=== PATIENT | female | born 2000 | race Caucasian/White ===

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

== ENCOUNTER 2021-08-21 01:55 | Emergency (ER) | payer BC ==
[~2021-08-21] VITALS: Ht 170.1 cm; Wt 98.0 kg
[~2021-08-21 01:55] MED LIST changes: +SERT-413; -SERT50TA9
--- NOTE | 2021-08-21 02:11 | ED Cough/URI ---
General Stated Complaint: FEVER,COUGH,SOB Source: patient History of Present Illness Date Seen by Provider: Aug 21, 2021 Time Seen by Provider: 02:02 Initial Comments PT ARRIVES VIA POV FROM HOME STATES SHE HAS BEEN SICK SINCE Friday08/16/21 HAD FEVER AND MUCH FATIGUE ON FRIDAY HAS HAD PERSISTENT FEVER UP TO 102.8 ON FRIDAY, SHE BEGAN TO HAVE SWOLLEN GLANDS IN HER NECK ON FRIDAY, SHE BEGAN TO HAVE A SORE THROAT AND WENT TO [facility] ON FRIDAY AND STREP TEST WAS NEGATIVE AND WAS PLACED ON AMOXIL PT ALSO TESTED NEGATIVE FOR COVID-19 AT WORK ON FRIDAY--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 NO DIARRHEA, NO ABDOMINAL PAIN C/O HEADACHE, BUT STATES SHE FREQUENTLY GETS HEADACHES NO LOSS OF TASTE OR SMELL TOOK EXTRA STRENGTH TYLENOL AROUND 0125, AND MOTRIN YESTERDAY AFTER NOON AROUND 1500 STATES SHE IS TRYING TO DRINK WATER, BUT HURTS TO SWALLOW STATES HER URINE HAS BEEN DARK TODAY PT IS FULLY VACCINATED AGAINST COVID-19, INCLUDING BOOSTER VACCINE ON 08/01/21 NO CHRONIC ILLNESS LMP--NOW. NORMAL. NO CONTROL PCP: DR. SALCEDO Allergies and Home Medications Allergies Coded Allergies: No Known Drug Allergies (Unverified , 06/24/17) Patient Home Medication List Home Medication List Reviewed: Yes Methylprednisolone (Medrol) 4 Mg Tab.ds.pk, 4 MG PO UD Prescribed by: TOSIN HURLEY on 08/21/21 0332 Sertraline HCl (Sertraline HCl) 50 Mg Tablet, (Reported) Entered as Reported by: CAROL BROWN on 06/24/17 1904 Review of Systems Review of Systems Constitutional: no symptoms reported, fever, malaise EENTM: see HPI, nose congestion, throat pain Respiratory: cough; No short of breath Cardiovascular: no symptoms reported Gastrointestinal: see HPI; No abdominal pain, No diarrhea; nausea; No vomiting Genitourinary: see HPI Musculoskeletal: no symptoms reported Skin: no symptoms reported Psychiatric/Neurological: See HPI, Headache Hematologic/Lymphatic: No Symptoms Reported Immunological/Allergic: no symptoms reported Past Lnqdnbh-Pnqmel-Zhkrru Hx Patient Social History Tobacco Use?: No Substance use?: No Alcohol Use?: No Immunizations Up To Date PED Vaccines UTD: Yes Seasonal Allergies Seasonal Allergies: No Past Medical History Surgeries: Yes (WISDOM TEETH) Respiratory: No Cardiac: No Neurological: Yes ( FEBRILE SEIZURES CHILD) Headaches /Migraines : No Reproductive Disorders: No Genitourinary: No Gastrointestinal: No Musculoskeletal: No Endocrine: No HEENT: No Cancer: No Psychosocial: No Integumentary: No Blood Disorders: No Physical Exam Vital Signs - First Documented 08/21/21 02:00 Temp 36.4 Pulse 147 Resp 20 B/P (MAP) 149/109 (122) Pulse Ox 98 O2 Delivery Room Air Capillary Refill : Height: 5'6.00" Weight: 206lbs. oz. 93.156720xc; 28.12 BMI Method:Stated General Appearance: WD/WN, no apparent distress HEENT: PERRL/EOMI, TMs normal; No scleral icterus (R), No scleral icterus (L); pharyngeal erythema, tonsillar exudate, other (TONSILS +3/4--ALMOST TOUCHING, VERY ERYTHEMATOUS WITH EXTENSIVE EXUDATE. 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, no motor/sensory deficits, alert, normal mood/affect, oriented x 3 Skin: normal color, warm/dry; No jaundice, No rash Progress/Results/Core Measures Suspected Sepsis SIRS Temperature: Pulse: Respiratory Rate: Laboratory Tests 08/21/21 02:30: White Blood Count 5.0 Blood Pressure / Mean: Laboratory Tests 08/21/21 02:30: Creatinine 0.76, Platelet Count 236, Total Bilirubin 0.6 Results/Orders Lab Results Laboratory Tests Test 08/21/21 02:00 08/21/21 02:30 Range/Units Influenza Type A (RT-PCR) Not Detected Not Detecte Influenza Type B (RT-PCR) Not Detected Not Detecte SARS-CoV-2 RNA (RT-PCR) Not Detected Not Detecte Group A Streptococcus Screen NEGATIVE NEGATIVE White Blood Count 5.0 4.3-11.0 10^3/uL Red Blood Count 4.91 3.80-5.11 10^6/uL Hemoglobin 11.8 11.5-16.0 g/dL Hematocrit 37 35-52 % Mean Corpuscular Volume 76 L 80-99 fL Mean Corpuscular Hemoglobin 24 L 25-34 pg Mean Corpuscular Hemoglobin Concent 32 32-36 g/dL Red Cell Distribution Width 17.4 H 10.0-14.5 % Platelet Count 236 130-400 10^3/uL Mean Platelet Volume 10.0 9.0-12.2 fL Immature Granulocyte % (Auto) 0 % Neutrophils (%) (Auto) 37 L 42-75 % Lymphocytes (%) (Auto) 55 H 12-44 % Monocytes (%) (Auto) 5 0-12 % Eosinophils (%) (Auto) 1 0-10 % Basophils (%) (Auto) 1 0-10 % Neutrophils # (Auto) 1.9 1.8-7.8 10^3/uL Lymphocytes # (Auto) 2.8 1.0-4.0 10^3/uL Monocytes # (Auto) 0.3 0.0-1.0 10^3/uL Eosinophils # (Auto) 0.0 0.0-0.3 10^3/uL Basophils # (Auto) 0.1 0.0-0.1 10^3/uL Immature Granulocyte # (Auto) 0.0 0.0-0.1 10^3/uL Sodium Level 139 135-145 MMOL/L Potassium Level 4.0 3.6-5.0 MMOL/L Chloride Level 105 98-107 MMOL/L Carbon Dioxide Level 20 L 21-32 MMOL/L Anion Gap 14 5-14 MMOL/L Blood Urea Nitrogen 8 7-18 MG/DL Creatinine 0.76 0.60-1.30 MG/DL Estimat Glomerular Filtration Rate 97 BUN/Creatinine Ratio 11 Glucose Level 103 70-105 MG/DL Calcium Level 8.7 8.5-10.1 MG/DL Corrected Calcium 8.9 8.5-10.1 MG/DL Total Bilirubin 0.6 0.1-1.0 MG/DL Aspartate Amino Transf (AST/SGOT) 269 H 5-34 U/L Alanine Aminotransferase (ALT/SGPT) 297 H 0-55 U/L Alkaline Phosphatase 196 H 40-136 U/L Total Protein 7.3 6.4-8.2 GM/DL Albumin 3.7 3.2-4.5 GM/DL Serum Test, Qualitative NEGATIVE NEGATIVE Monoscreen NEGATIVE NEGATIVE My Orders Orders - TOSIN HURLEY DO Influenza A And B By Pcr (08/21/21 02:00) Covid 19 Inhouse Test (08/21/21 02:00) Rapid Strep A Screen (08/21/21 02:04) Ed Iv/Invasive Line Start (08/21/21 02:22) Monitor-Rhythm Ecg Trace Only (08/21/21 02:22) Cbc With Automated Diff (08/21/21 02:22) Comprehensive Metabolic Panel (08/21/21 02:22) Hcg,Qualitative Serum (08/21/21 02:22) Monotest (08/21/21 02:22) Ed Iv/Invasive Line Start (08/21/21 02:22) Ns Iv 1000 Ml (Sodium Chloride 0.9%) (08/21/21 02:30) Manual Differential (08/21/21 02:30) Jeanette Thomas Virus Profile (08/21/21 03:17) Hepatitis Panel Acute (08/21/21 03:18) Methylprednisolone Sod Succ (Solu-Medrol (08/21/21 03:30) Ceftriaxone 1 Gm Pre-Mix (Rocephin 1 Gm (08/21/21 03:19) Ceftriaxone (Rocephin) (08/21/21 03:25) Medications Given in ED Current Medications Medications Dose Ordered Sig/Mariann Route Start Time Stop Time Status Last Admin Dose Admin Methylprednisolone Sodium Succinate 125 mg ONCE ONCE IVP 08/21/21 03:30 08/21/21 03:31 UNV 08/21/21 03:30 125 MG Vital Signs/I&O 08/21/21 02:00 Temp 36.4 Pulse 147 Resp 20 B/P (MAP) 149/109 (122) Pulse Ox 98 O2 Delivery Room Air Capillary Refill : Progress Note : Progress Note PLACED IN ISOLATION ROOM PPE WORN COVID-19 TESTING PERFORMED. GIVEN IV FLUIDS AND LAB DONE. HEART RATE DOWN TO 100 BP STABLE O2 SAT 100% ON ROOM AIR NO DETERIORATION IN PT'S CONDITION DURING ER STAY DISCUSSED WITH PT THE IMPORTANCE OF FOLLOW UP WITH HER PCP ( OR NETTE IF HIS OFFICE IS CLOSED FOR HOLIDAY) IN 2 DAYS FOR RECHECK OF CONDITION AND REPEAT LAB, AND REPEAT MONO TESTING Departure Impression Primary Impression: Exudative pharyngitis Additional Impressions: Elevated liver enzymes SUSPECTED VIRAL ILLNESS Mild dehydration Disposition: HOME, SELF-CARE Condition: Improved Departure-Patient Inst. Decision time for Depature: 03:20 Referrals: BENNIE SALCEDO MD (PCP/Family) Primary Care Physician Patient Instructions: Dehydration, Adult (DC), Liver Function Test, Sore Throat, Adult ED, Viral Pharyngitis (DC) Add. Discharge Instructions: INCREASE YOUR FLUID INTAKE--DRINK EQUAL AMOUNTS OF WATER AND GATORADE--DRINK ENOUGH SO YOU ARE URINATING EVERY 2-3 HOURS WHILE AWAKE AVOID TYLENOL AT THIS TIME, WELL ALCOHOL, THEY CAN AFFECT YOUR LIVER. YOU MAY TAKE IBUPROFEN NEEDED FOR PAIN OR FEVER CONTINUE AMOXIL UNTIL YOU ARE RECHECKED BY YOUR DR FOLLOW UP WITH DR. SALCEDO ( OR WITH NETTE IF HIS OFFICE IS CLOSED FOR HOLIDAY) IN 2 DAYS FOR FURTHER EVALUATION. YOU WILL NEED TO HAVE YOUR LAB RECHECKED--ESPECIALLY FOR LIVER ENZYMES, AND FOR REPEAT MONO TESTING. RETURN TO ER IF YOUR SYMPTOMS WORSEN Scripts Methylprednisolone (Medrol) 4 Mg Tab.ds.pk 4 MG PO UD for 6 Days, #21 PKG PER DOSE PACK INSTRUCTIONS Prov: TOSIN HURLEY DO 08/21/21 Work/School Note: Work Release Form Date Seen in the Emergency Department: Aug 21, 2021 Restrictions: Need Release from Doctor TOSIN HURLEY DO Aug 21, 2021 02:11
[2021-08-21] MEDS ORDERED: NS IV 1000 ML 1,000 ML IV SCH (02:30)
[2021-08-21 02:50] LABS: ALBUMIN 3.7 GM/DL (3.2-4.5)
[2021-08-21 02:51] LABS: CALCIUM 8.7 MG/DL (8.5-10.1)
[2021-08-21 02:53] LABS: TOTAL PROTEIN 7.3 GM/DL (6.4-8.2)
[2021-08-21 02:54] LABS: BILIRUBIN,TOTAL 0.6 MG/DL (0.1-1.0)
[2021-08-21 02:56] LABS: CREATININE SERUM 0.76 MG/DL (0.60-1.30)
[2021-08-21 03:02] LABS: BASOPHILS # (AUTO) 0.1 10^3/uL (0.0-0.1); BASOPHILS % (AUTO) 1 % (0-10); EOSINOPHILS % (AUTO) 1 % (0-10); HEMATOCRIT 37 % (35-52); HEMOGLOBIN 11.8 g/dL (11.5-16.0); LYMPHOCYTES # (AUTO) 2.8 10^3/uL (1.0-4.0); LYMPHOCYTES % (AUTO) 55 % (12-44); MEAN CORPUSCULAR HEMOGLOBIN 24 pg (25-34); MEAN CORPUSCULAR HGB CONC 32 g/dL (32-36); MEAN CORPUSCULAR VOLUME 76 fL (80-99); MONOCYTES # (AUTO) 0.3 10^3/uL (0.0-1.0); MONOCYTES % (AUTO) 5 % (0-12); NEUTROPHILS # (AUTO) 1.9 10^3/uL (1.8-7.8); NEUTROPHILS % (AUTO) 37 % (42-75); PLATELET COUNT 236 10^3/uL (130-400)
[2021-08-21] MEDS ORDERED: cefTRIAXone 1 GM PRE-MIX 50 ML IV STA (03:19)
[2021-08-21] MEDS ORDERED: cefTRIAXone 1,000 MG VIAL ONE (03:25)
[2021-08-21] MEDS ORDERED: methylPREDNISolone 125 MG (Solu-MEDROL) VIAL ONE (03:25)
[2021-08-21] MEDS ORDERED: cefTRIAXone 1 GM PRE-MIX 50 ML IV ONE (03:27)
[2021-08-21] MEDS ORDERED: methylPREDNISolone 125 MG (Solu-MEDROL) VIAL IVP ONE (03:30)
[2021-08-21] MEDS ORDERED: METH4TAB PO (03:32)
[2021-08-21 03:34] LABS: ATYPICAL LYMPHOCYTES 8 %; EOSINOPHILS % (MANUAL) 1 %; LYMPHOCYTES % (MANUAL) 38 %; MICROCYTOSIS SLIGHT; MONOCYTES % (MANUAL) 10 %; NEUTROPHILS % (MANUAL) 43 %
[2021-08-21 04:27] VITALS: BP 125/76
[2021-08-21 22:20] LABS: HEPATITIS C ANTIBODY C Non-Reactive (Non-Reactive)
== END 2021-08-21 04:26 | disposition home or self-care (01) ==
LOC: EDUNIT# 01:55 → ER 01:56
DX: J02.9 Acute pharyngitis, unspecified (principal); R94.5 Abnormal results of liver function studies; E86.0 Dehydration; Z20.822 Contact with and (suspected) exposure to COVID-19
CPT/HCPCS: 36415; 80053; 80074; 84703; 85007; 85027; 86308; 86663; 86664; 86665; 87430; 87636; 93041